=== PATIENT | female | born 1955 | race African-American/Black ===

== ENCOUNTER → 2016-08-01 | Outpatient (CLI) | payer MEDICARE ==
[~2016-08-01] MED LIST: 00186-0370-20 IH; ADVAIR IH; AMBIEN10 MG PO; AMITRIPTYLINE H50 M1 PO; ARICEPT10 MG PO; ATIVAN0.5 MG PO; B-12500 MCG PO; CAL-CITRATE PLU1 TAB PO; CENTRUM SILVER1 TA1 PO; COZAAR 25MG25 MG/TAB PO; CYMBALTA 60MG60 MG PO; FLEXERIL 1010 MG/TAB PO; HYDROCODONE/APAP; HYGROTON 2525 MG/TAB PO; IMITREX50 MG PO; LEXAPRO 10MG10 MG PO; LUNESTA3 MG PO; MELATONIN3 M1 PO; MIRALAX17 GM/DOSE PO; NAMENDA 10MG TA10 MG PO; NEURONTIN300 MG/CAP PO; NO HOME MEDICATIONS; NORCO 325 MG-51 TAB PO; PERCOCET 325 MG1 TA2 PO; PERCOCET 500 MG1 TAB PO; PHENERGAN 25 TA25 MG PO; PREDNISONE20 MG PO; PROTONIX 40MG T40 MG PO; SINGULAIR 110 MG/TAB PO; SYNTHROID0.05 MG/TA PO; TORADOL 10MG TA10 MG PO; VALIUM5 MG PO; VERAPAMIL240 MG PO; VESICARE10 MG PO; WELLBUTRIN SR150 M1 PO; ZOVIRAX400 MG PO
== END ==
LOC: SUN.DIA
DX: E11.65 Type 2 diabetes mellitus with hyperglycemia (principal); E66.9 Obesity, unspecified; Z68.34 Body mass index [BMI] 34.0-34.9, adult; Z71.3 Dietary counseling and surveillance; E78.5 Hyperlipidemia, unspecified; I10 Essential (primary) hypertension

== ENCOUNTER → 2016-08-24 | Outpatient (CLI) | payer MEDICARE | LOC: SUN.DIA 08:49 | DX: E11.65 Type 2 diabetes mellitus with hyperglycemia (principal); E66.9 Obesity, unspecified; Z71.3 Dietary counseling and surveillance; E78.5 Hyperlipidemia, unspecified; I10 Essential (primary) hypertension | CPT/HCPCS: G0109 ==

== ENCOUNTER → 2016-08-25 | Outpatient (CLI) | payer MEDICARE | LOC: SUN.DIA 13:20 | DX: E11.65 Type 2 diabetes mellitus with hyperglycemia (principal); Z68.35 Body mass index [BMI] 35.0-35.9, adult; E66.9 Obesity, unspecified; Z71.3 Dietary counseling and surveillance; E78.5 Hyperlipidemia, unspecified; I10 Essential (primary) hypertension ==

== ENCOUNTER → 2016-08-31 | Outpatient (CLI) | payer MEDICARE | LOC: SUN.DIA 10:58 | DX: E11.65 Type 2 diabetes mellitus with hyperglycemia (principal); E66.9 Obesity, unspecified; Z71.3 Dietary counseling and surveillance; E78.5 Hyperlipidemia, unspecified; I10 Essential (primary) hypertension | CPT/HCPCS: G0109 ==

== ENCOUNTER → 2016-09-07 | Outpatient (CLI) | payer MEDICARE | LOC: SUN.DIA 09:28 | DX: E11.65 Type 2 diabetes mellitus with hyperglycemia (principal); E66.9 Obesity, unspecified; Z71.3 Dietary counseling and surveillance; E78.5 Hyperlipidemia, unspecified; I10 Essential (primary) hypertension | CPT/HCPCS: G0109 ==

== ENCOUNTER → 2016-09-14 | Outpatient (CLI) | payer MEDICARE | LOC: SUN.DIA 15:41 | DX: E11.65 Type 2 diabetes mellitus with hyperglycemia (principal); E66.9 Obesity, unspecified; Z71.3 Dietary counseling and surveillance; E78.5 Hyperlipidemia, unspecified; I10 Essential (primary) hypertension | CPT/HCPCS: G0109 ==

== ENCOUNTER 2016-11-20 12:18 | Emergency (ER) | payer MEDICARE ==
[2005-06-01 16:59] VITALS: BP 127/67
[~2016-11-20] VITALS: Ht 157.5 cm; Wt 80.5 kg
[~2016-11-20 12:18] MED LIST changes: -00186-0370-20 IH; -AMITRIPTYLINE H50 M1 PO; -ARICEPT10 MG PO; -HYGROTON 2525 MG/TAB PO; -MELATONIN3 M1 PO; -NAMENDA 10MG TA10 MG PO; -NEURONTIN300 MG/CAP PO; -PHENERGAN 25 TA25 MG PO; -PROTONIX 40MG T40 MG PO; -SYNTHROID0.05 MG/TA PO; -TORADOL 10MG TA10 MG PO
[2016-11-20 12:19] VITALS: TEMP 97.9
[2016-11-20] MEDS ORDERED: NORCO 325 MG-51 TAB PO (12:54)
[2016-11-20 12:56] LABS: BASO # 0.1 (0.0-0.2); BASO % 0.5 % (0.0-2.0); EOS # 0.2 (0.0-0.7); EOS % 2.1 % (0-4.0); GRAN # 6.6 (1.4-6.5); GRAN % 69.1 % (42.2-75.2); HEMOGLOBIN 15.5 g/dl (12.5-16.0); LYMPH % 21.2 % (20.0-51.0); MEAN CELL VOLUME 89 fl (80.0-100.0); MEAN CORPUSCULAR HEMOGLOBIN 29 pg (27.0-31.0); MEAN CORPUSCULAR HGB CONC 32 g/dl (33.0-37.0); MEAN PLATELET VOLUME 9.2 fl (7.4-10.4); MONO # 0.7 (0.1-0.6); MONO % 6.8 % (1.7-9.3); PLATELET COUNT 292 K/mm3 (130-400); RED BLOOD COUNT 5.39 M/mm3 (4.10-5.30); REDCELL DISTRIBUTION WIDTH-CV 13.3 % (11.5-14.5); WHITE BLOOD COUNT 9.6 K/mm3 (4.8-10.8)
[2016-11-20] MEDS ORDERED: 00186-0370-20 IH (12:56)
[2016-11-20] MEDS ORDERED: ARICEPT10 MG PO (12:57)
[2016-11-20] MEDS ORDERED: TORADOL 10MG TA10 MG PO (12:58)
[2016-11-20] MEDS ORDERED: NEURONTIN300 MG/CAP PO (12:58)
[2016-11-20] MEDS ORDERED: AMITRIPTYLINE H50 M1 PO (12:58)
[2016-11-20] MEDS ORDERED: SYNTHROID0.05 MG/TA PO (12:59)
[2016-11-20] MEDS ORDERED: NAMENDA 10MG TA10 MG PO (12:59)
[2016-11-20] MEDS ORDERED: PHENERGAN 25 TA25 MG PO ×2 (12:59→14:33)
[2016-11-20] MEDS ORDERED: HYGROTON 2525 MG/TAB PO (12:59)
[2016-11-20] MEDS ORDERED: MELATONIN3 M1 PO (13:00)
[2016-11-20 13:03] LABS: ADJUSTED CALCIUM 10.2 mg/dL (8.4-10.2); ALANINE AMINOTRANSFERASE 46 U/L (9-52); ALBUMIN 4.7 gm/dL (3.5-5.0); ALKALINE PHOSPHATASE 74 U/L (50-136); ANION GAP 16 mmol/L (7-16); BLOOD UREA NITROGEN 15 mg/dL (7-17); CALCIUM 10.8 mg/dL (8.4-10.2); CARBON DIOXIDE 27 mmol/L (22-30); CHLORIDE 96 mmol/L (98-107); CREATININE, serum 0.86 mg/dL (0.52-1.25); GLUCOSE 142 mg/dL (74-106); LIPASE 88 U/L (23-300); POTASSIUM 3.6 mmol/L (3.4-5.0); SODIUM 139 mmol/L (137-145); TOTAL PROTEIN 7.9 gm/dL (6.4-8.2)
[2016-11-20 13:18] LABS: TROPONIN-I < 0.012 ng/mL (0.000-0.034)
[2016-11-20] MEDS ORDERED: PROTONIX 40MG T40 MG PO (14:33)
[2016-11-20] MEDS ORDERED: PERCOCET 325 MG1 TA2 PO (14:33)
[2016-11-20 14:46] VITALS: BP 123/74; PULSE 104
== END 2016-11-20 14:47 | disposition home or self-care (01) ==
LOC: COL.ER 12:18
PROVIDERS: Emergency Medicine
DX: R10.11 Right upper quadrant pain (principal); R11.2 Nausea with vomiting, unspecified; R00.0 Tachycardia, unspecified; E11.9 Type 2 diabetes mellitus without complications; J45.909 Unspecified asthma, uncomplicated; F03.90 Unspecified dementia, unspecified severity, without behavioral disturbance, psychotic disturbance, mood disturbance, and anxiety; D86.9 Sarcoidosis, unspecified
CPT/HCPCS: J2270; J2405; J2550; J7030; Q9967

== ENCOUNTER 2017-05-05 20:14 | Emergency (ER) | payer MEDICARE ==
[2005-06-01 16:59] VITALS: BP 127/67
[~2017-05-05] VITALS: Ht 157.5 cm; Wt 80.5 kg
[~2017-05-05 20:14] MED LIST changes: +00186-0370-20 IH; +AMITRIPTYLINE H50 M1 PO; +ARICEPT10 MG PO; +HYGROTON 2525 MG/TAB PO; +MELATONIN3 M1 PO; +NAMENDA 10MG TA10 MG PO; +NEURONTIN300 MG/CAP PO; +PHENERGAN 25 TA25 MG PO; +PROTONIX 40MG T40 MG PO; +SYNTHROID0.05 MG/TA PO; +TORADOL 10MG TA10 MG PO
[2017-05-05 20:17] VITALS: TEMP 98.5
[2017-05-05] MEDS ORDERED: AMOXICILLIN 8751 TAB PO (21:47)
[2017-05-05 22:10] VITALS: BP 151/84; PULSE 71
== END 2017-05-05 22:05 | disposition home or self-care (01) ==
LOC: COL.ER 20:14
DX: S61.411A Laceration without foreign body of right hand, initial encounter (principal); E11.9 Type 2 diabetes mellitus without complications; Z79.84 Long term (current) use of oral hypoglycemic drugs; W54.0XXA Bitten by dog, initial encounter

== ENCOUNTER 2017-05-22 17:14 | Emergency (ER) | payer MEDICARE ==
[2005-06-01 16:59] VITALS: BP 127/67
[~2017-05-22] VITALS: Ht 157.5 cm; Wt 77.3 kg
[~2017-05-22 17:14] MED LIST changes: +AMOXICILLIN 8751 TAB PO
[2017-05-22 17:26] VITALS: BP 147/65; PULSE 96; TEMP 98.5
== END 2017-05-22 19:16 | disposition home or self-care (01) ==
LOC: COL.ER 17:14
DX: S93.402A Sprain of unspecified ligament of left ankle, initial encounter (principal); E11.9 Type 2 diabetes mellitus without complications; Z79.84 Long term (current) use of oral hypoglycemic drugs; W01.0XXA Fall on same level from slipping, tripping and stumbling without subsequent striking against object, initial encounter; X50.0XXA Overexertion from strenuous movement or load, initial encounter

== ENCOUNTER → 2017-10-27 | Outpatient (CLI) | payer MEDICARE | LOC: MC.RAD 09-11 14:00 | DX: Z12.31 Encounter for screening mammogram for malignant neoplasm of breast (principal) ==

== ENCOUNTER → 2019-04-30 | Outpatient (CLI) | payer MEDICARE | LOC: MC.RAD 15:19 | DX: Z12.31 Encounter for screening mammogram for malignant neoplasm of breast (principal) ==

== ENCOUNTER 2019-05-08 15:05 | Outpatient (RCR) | payer MEDICARE | END 2019-05-08 15:08 | disposition home or self-care (01) | LOC: MKS.ESL.PT 15:05 | DX: Z01.812 Encounter for preprocedural laboratory examination (principal); M17.11 Unilateral primary osteoarthritis, right knee ==

== ENCOUNTER 2019-05-18 12:42 | Inpatient (IN) | payer MEDICARE ==
[~2019-05-18] VITALS: Ht 157.5 cm; Wt 88.6 kg
[2019-05-18 14:24] LABS: COLLECTION METHOD CLEAN CATCH
[2019-05-18 14:29] LABS: PH 7 (5-8); SQUAMOUS EPITHELIAL 0-2 /hpf; URINE APPEARANCE Clear; URINE BACTERIA None Seen /hpf; URINE BILIRUBIN Negative (NEGATIVE); URINE BLOOD Negative (NEGATIVE); URINE COLOR Straw; URINE GLUCOSE Negative (NEGATIVE); URINE KETONE Negative (NEGATIVE); URINE LEUKOCYTE ESTERASE Negative (NEGATIVE); URINE NITRATE Negative (NEGATIVE); URINE PROTEIN(semi-quant) Negative (NEGATIVE); URINE RBC 0-2 /hpf; URINE UROBILINOGEN Negative (NEGATIVE)
[2019-05-18 15:00] LABS: BASO % 0.2 % (0.0-2.0); EOS # 0.4 (0.0-0.7); EOS % 3.7 % (0-4.0); GRAN % 72.2 % (42.2-75.2); HEMOGLOBIN 10.6 g/dl (12.5-16.0); LYMPH # 1.3 (1.2-3.4); LYMPH % 13.4 % (20.0-51.0); MEAN CELL VOLUME 89 fl (80.0-100.0); MEAN CORPUSCULAR HEMOGLOBIN 29 pg (27.0-31.0); MEAN CORPUSCULAR HGB CONC 32 g/dl (33.0-37.0); MEAN PLATELET VOLUME 9.2 fl (7.4-10.4); MONO % 10.1 % (1.7-9.3); PLATELET COUNT 213 K/mm3 (130-400); RED BLOOD COUNT 3.72 M/mm3 (4.10-5.30); REDCELL DISTRIBUTION WIDTH-CV 13.9 % (11.5-14.5)
[2019-05-18 15:07] LABS: HEMATOCRIT 33.2 % (37.0-47.0)
[2019-05-18 15:11] LABS: INR 1.3 (0.8-3.0); PROTHROMBIN TIME 15.8 SECONDS (9.7-12.8)
[2019-05-18 15:16] LABS: BILIRUBIN,TOTAL 0.7 mg/dL (0.0-1.0); CALCIUM 9.6 mg/dL (8.4-10.2); CREATININE, serum 0.81 (0.52-1.25); POTASSIUM 3.6 mmol/L (3.4-5.0)
[2019-05-18 15:57] LABS: C-REACTIVE PROTEIN 20.8 mg/dL (0.0-0.9)
[2019-05-18 16:14] LABS: ARTERIAL BLD GAS O2 SATURATION 91.1 % (92-100); ARTERIAL BLD GAS TCO2 CT 28.8; ARTERIAL BLOOD GAS BASE EXCESS 2.3 (-2-2); ARTERIAL BLOOD GAS HCO3 27.4 meq/L (22-26); ARTERIAL BLOOD GAS PCO2 44.9 mmHg (35-45); ARTERIAL BLOOD GAS PO2 61.1 mmHg (80-100)
[2019-05-18 18:37] VITALS: BP 102/62; PULSE 101; TEMP 98.6
--- NOTE | 2019-05-18 20:00 | NUR ---
PT ADMITTED FROM E.D. WITH RIGHT KNEE PAIN. RT KNEE SLIGHTLY SWOLLEN WOULD BE EXPECTED AFTER A TOTAL KNEE REPLACEMENT. PT A BIT FORGETFUL. GAIT STEADY USING WALKER.
[2019-05-18 20:05] VITALS: BP 106/68; PULSE 98; TEMP 97.7
[2019-05-18] MEDS ORDERED: DITROPAN 5MG TAB5 MG PO (20:13)
[2019-05-18] MEDS ORDERED: GLUCOPHAGE500 MG/TAB PO (20:13)
[2019-05-18] MEDS ORDERED: TOPAMAX 25MG25 M1 PO (20:13)
[2019-05-18] MEDS ORDERED: CELEBREX 200MG200 MG PO (20:15)
[2019-05-18] MEDS ORDERED: COUMADIN 5MG5 MG/TAB PO (20:16)
--- NOTE | 2019-05-19 | NUR ---
PT WAS WORRIED ABOUT HER FREQUENT INCONTINENCE. PUREWICK EXTERNAL CATHETER APPLIED.
[2019-05-19 04:00] VITALS: BP 150/89; PULSE 110; TEMP 98.6
--- NOTE | 2019-05-19 06:19 | NUR ---
UP FREQUENTY TO VOID. PT AMBULATING WITHOUT DIFFICULTY ON RLE USING WALKER. NO DYSNEA. O2 SAT 94% ON ROOM AIR.
[2019-05-19 07:30] VITALS: BP 128/80; PULSE 103; TEMP 99.1
[2019-05-19 07:59] LABS: BASO % 0.4 % (0.0-2.0); EOS # 0.4 (0.0-0.7); EOS % 4.4 % (0-4.0); GRAN # 5.7 (1.4-6.5); GRAN % 72.1 % (42.2-75.2); MEAN CELL VOLUME 90 fl (80.0-100.0); MEAN CORPUSCULAR HGB CONC 32 g/dl (33.0-37.0); MEAN PLATELET VOLUME 9.3 fl (7.4-10.4); MONO # 0.8 (0.1-0.6); MONO % 9.8 % (1.7-9.3); PLATELET COUNT 228 K/mm3 (130-400); RED BLOOD COUNT 3.27 M/mm3 (4.10-5.30); REDCELL DISTRIBUTION WIDTH-CV 14.1 % (11.5-14.5)
--- NOTE | 2019-05-19 08:00 | NUR ---
Patient resting in bed at this time. Patient is alert and oriented, answers questions appropriately. Patient states she is having pain in her right knee, but pain is tolerable at this time. Patient has expiratory wheezing, states she has asthma and is feeling a little SOA, SpO2 WNL. Patient denies further needs at this time, daughter at bedside.
[2019-05-19 08:04] LABS: HEMATOCRIT 29.4 % (37.0-47.0); HEMOGLOBIN 9.4 g/dl (12.5-16.0); MEAN CORPUSCULAR HEMOGLOBIN 29 pg (27.0-31.0)
[2019-05-19 08:05] LABS: INR 1.5 (0.8-3.0); PROTHROMBIN TIME 18.2 SECONDS (9.7-12.8)
[2019-05-19 08:27] LABS: ALBUMIN 3.5 gm/dL (3.5-5.0); BILIRUBIN,TOTAL 0.6 mg/dL (0.0-1.0); CALCIUM 8.9 mg/dL (8.4-10.2); CREATININE, serum 0.85 (0.52-1.25); POTASSIUM 3.3 mmol/L (3.4-5.0); TOTAL PROTEIN 6.2 gm/dL (6.4-8.2)
[2019-05-19 11:26] VITALS: BP 141/82; PULSE 100; TEMP 98.4
[2019-05-19] MEDS ORDERED: COUMADIN4 MG PO (13:48)
[2019-05-19] MEDS ORDERED: PREDNISONE20 MG PO (13:49)
--- NOTE | 2019-05-19 16:00 | NUR ---
Patient resting in bed at this time. Informed patient that discharge orders had been placed, patient requested to wait for her daughter to arrive prior to discharge teaching. Patient then reported that she was feeling unwell, had pain in her legt and chest, and felt SOA and was uncomfortable leaving. Called hospitalist and informed her of the patient concerns. Administered scheduled prednisone and now dose of oxycodone per orders. Vital signs WNL. Call light within reach.
[2019-05-19 16:20] VITALS: BP 138/87; PULSE 99; TEMP 98.2
[2019-05-19] MEDS ORDERED: PERCOCET 325 MG1 TA2 PO (17:44)
--- NOTE | 2019-05-19 17:52 | NUR ---
Discharge teaching completed. Patient requests script for oxycodone as the one time dose had been effective and did not cause hallucinations or delerium. Called hospitalist and passed on patient request. Hospitalist provided script for oxycodone. INT removed, cannula intact, hemostasis achieved. Patient escorted to ED entrance where she entered a private vehicle.
== END 2019-05-19 18:00 | disposition home or self-care (01) | DRG 556 ==
LOC: COL.ER 12:42 → SURG 16:47
PROVIDERS: Emergency Medicine; ADMIT Family Medicine
DX: M79.89 Other specified soft tissue disorders (principal); J45.901 Unspecified asthma with (acute) exacerbation; D62 Acute posthemorrhagic anemia; L53.9 Erythematous condition, unspecified; H53.9 Unspecified visual disturbance; G43.909 Migraine, unspecified, not intractable, without status migrainosus; F03.90 Unspecified dementia, unspecified severity, without behavioral disturbance, psychotic disturbance, mood disturbance, and anxiety; I10 Essential (primary) hypertension; G89.29 Other chronic pain; E11.42 Type 2 diabetes mellitus with diabetic polyneuropathy; E03.9 Hypothyroidism, unspecified; F32.9 Major depressive disorder, single episode, unspecified; I27.20 Pulmonary hypertension, unspecified; R79.89 Other specified abnormal findings of blood chemistry; K59.00 Constipation, unspecified; Z90.710 Acquired absence of both cervix and uterus; Z79.891 Long term (current) use of opiate analgesic; Z88.6 Allergy status to analgesic agent; Z88.8 Allergy status to other drugs, medicaments and biological substances; T50.995A Adverse effect of other drugs, medicaments and biological substances, initial encounter
CPT/HCPCS: J1885; J1940; J7030; J7512; Q9967

== ENCOUNTER 2020-03-19 12:58 | Emergency (ER) | payer MEDICARE ==
[2005-06-01 16:59] VITALS: BP 127/67
[~2020-03-19] VITALS: Ht 157.5 cm; Wt 77.3 kg
[~2020-03-19 12:58] MED LIST changes: +CELEBREX 200MG200 MG PO; +COUMADIN 5MG5 MG/TAB PO; +COUMADIN4 MG PO; +DITROPAN 5MG TAB5 MG PO; +GLUCOPHAGE500 MG/TAB PO; +TOPAMAX 25MG25 M1 PO
[2020-03-19 13:03] VITALS: TEMP 98.5
[2020-03-19] MEDS ORDERED: ZYRTEC 10MG10 MG PO (13:16)
[2020-03-19 14:37] VITALS: BP 109/74; PULSE 88
== END 2020-03-19 14:37 | disposition home or self-care (01) ==
LOC: COL.ER 12:58
DX: S00.81XA Abrasion of other part of head, initial encounter (principal); S60.212A Contusion of left wrist, initial encounter; S60.211A Contusion of right wrist, initial encounter; S80.212A Abrasion, left knee, initial encounter; E11.9 Type 2 diabetes mellitus without complications; F32.9 Major depressive disorder, single episode, unspecified; F01.50 Vascular dementia, unspecified severity, without behavioral disturbance, psychotic disturbance, mood disturbance, and anxiety; J45.909 Unspecified asthma, uncomplicated; Z88.5 Allergy status to narcotic agent; Z88.6 Allergy status to analgesic agent; Z79.84 Long term (current) use of oral hypoglycemic drugs; W01.10XA Fall on same level from slipping, tripping and stumbling with subsequent striking against unspecified object, initial encounter; Y92.009 Unspecified place in unspecified non-institutional (private) residence as the place of occurrence of the external cause

== ENCOUNTER 2020-06-11 08:47 | Emergency (ER) | payer MEDICARE ==
[2005-06-01 16:59] VITALS: BP 127/67
[~2020-06-11] VITALS: Ht 157.5 cm; Wt 77.3 kg
[~2020-06-11 08:47] MED LIST changes: +ZYRTEC 10MG10 MG PO
[2020-06-11 08:55] VITALS: TEMP 98
[2020-06-11 09:31] LABS: BASO # 0.1 (0.0-0.2); BASO % 0.7 % (0.0-2.0); EOS # 0.3 (0.0-0.7); EOS % 3.8 % (0-4.0); GRAN # 3.8 (1.4-6.5); GRAN % 50.2 % (42.2-75.2); HEMATOCRIT 38.9 % (37.0-47.0); HEMOGLOBIN 12.4 g/dl (12.5-16.0); LYMPH # 2.7 (1.2-3.4); LYMPH % 35.9 % (20.0-51.0); MEAN CELL VOLUME 90 fl (80.0-100.0); MEAN CORPUSCULAR HEMOGLOBIN 29 pg (27.0-31.0); MEAN CORPUSCULAR HGB CONC 32 g/dl (33.0-37.0); MEAN PLATELET VOLUME 8.9 fl (7.4-10.4); MONO # 0.7 (0.1-0.6); PLATELET COUNT 264 K/mm3 (130-400); RED BLOOD COUNT 4.33 M/mm3 (4.10-5.30); REDCELL DISTRIBUTION WIDTH-CV 13.1 % (11.5-14.5)
[2020-06-11] MEDS ORDERED: PERCOCET 325 MG1 TA2 PO (10:24)
[2020-06-11 10:50] VITALS: BP 123/92; PULSE 90
== END 2020-06-11 10:34 | disposition home or self-care (01) ==
LOC: COL.ER 08:47
PROVIDERS: Family Medicine
DX: Z96.652 Presence of left artificial knee joint (principal); F03.90 Unspecified dementia, unspecified severity, without behavioral disturbance, psychotic disturbance, mood disturbance, and anxiety; E11.9 Type 2 diabetes mellitus without complications; J45.909 Unspecified asthma, uncomplicated; Z88.8 Allergy status to other drugs, medicaments and biological substances; Z88.6 Allergy status to analgesic agent; Z79.84 Long term (current) use of oral hypoglycemic drugs
CPT/HCPCS: J1170; J2550

== ENCOUNTER 2020-07-10 15:32 | Outpatient (RCR) | payer MEDICARE | END 2020-07-10 15:45 | disposition home or self-care (01) | LOC: MKS.ESL.PT 15:32 | DX: Z01.818 Encounter for other preprocedural examination (principal); M25.562 Pain in left knee ==

== ENCOUNTER 2020-09-23 14:45 | Outpatient (RCR) | payer MEDICARE, OTHER | END 2020-10-23 09:28 | disposition home or self-care (01) | LOC: WSPT 14:45 | DX: M17.12 Unilateral primary osteoarthritis, left knee (principal); M48.062 Spinal stenosis, lumbar region with neurogenic claudication; M43.16 Spondylolisthesis, lumbar region; M85.80 Other specified disorders of bone density and structure, unspecified site; M48.061 Spinal stenosis, lumbar region without neurogenic claudication; M54.16 Radiculopathy, lumbar region ==

== ENCOUNTER → 2020-11-03 | Outpatient (CLI) | payer MEDICARE | LOC: MHCPAIN 14:57 | DX: M47.816 Spondylosis without myelopathy or radiculopathy, lumbar region (principal); M54.16 Radiculopathy, lumbar region; M53.3 Sacrococcygeal disorders, not elsewhere classified; G89.29 Other chronic pain | CPT/HCPCS: G0463 ==

== ENCOUNTER → 2020-11-16 | Outpatient (CLI) | payer MEDICARE, OTHER | LOC: MHCPAIN 12:03 | DX: M47.817 Spondylosis without myelopathy or radiculopathy, lumbosacral region (principal); M54.16 Radiculopathy, lumbar region | CPT/HCPCS: J1100; Q9967 ==

== ENCOUNTER 2020-11-25 09:15 | Outpatient (RCR) | payer MEDICARE, OTHER | END 2021-01-10 | disposition home or self-care (01) | LOC: MKS.ESL.PT | DX: Z96.652 Presence of left artificial knee joint (principal) ==

== ENCOUNTER → 2020-12-01 | Outpatient (CLI) | payer MEDICARE, OTHER | LOC: MHCPAIN 10:44 | DX: M47.816 Spondylosis without myelopathy or radiculopathy, lumbar region (principal); M53.3 Sacrococcygeal disorders, not elsewhere classified; M54.16 Radiculopathy, lumbar region | CPT/HCPCS: G0463 ==

== ENCOUNTER → 2020-12-10 | Outpatient (CLI) | payer MEDICARE, OTHER | LOC: MHCPAIN 09:04 | DX: M47.817 Spondylosis without myelopathy or radiculopathy, lumbosacral region (principal); M54.16 Radiculopathy, lumbar region | CPT/HCPCS: J1100; Q9967 ==

== ENCOUNTER → 2021-09-01 | Outpatient (CLI) | payer MEDICARE | LOC: COL.RAD 12:18 | DX: M16.12 Unilateral primary osteoarthritis, left hip (principal); M70.52 Other bursitis of knee, left knee; M89.9 Disorder of bone, unspecified | CPT/HCPCS: A9575 ==

== ENCOUNTER 2021-11-03 14:10 | Outpatient (RCR) | payer MEDICARE | END 2021-11-09 | disposition home or self-care (01) | LOC: MKS.ESL.PT | DX: M70.62 Trochanteric bursitis, left hip (principal); M16.12 Unilateral primary osteoarthritis, left hip ==

== ENCOUNTER → 2022-01-12 | Outpatient (CLI) | payer MEDICARE | LOC: COL.RAD 11-12 10:30 | DX: M48.02 Spinal stenosis, cervical region (principal); M48.03 Spinal stenosis, cervicothoracic region; M25.78 Osteophyte, vertebrae; M46.92 Unspecified inflammatory spondylopathy, cervical region; Z98.1 Arthrodesis status; R29.898 Other symptoms and signs involving the musculoskeletal system ==

== ENCOUNTER 2022-03-21 14:00 | Outpatient (RCR) | payer MEDICARE | END 2022-04-11 | disposition home or self-care (01) | LOC: MKS.ESL.PT | DX: M48.062 Spinal stenosis, lumbar region with neurogenic claudication (principal); M43.16 Spondylolisthesis, lumbar region; Z98.1 Arthrodesis status ==